=== PATIENT | female | born 1970 | race American Indian/Alaskan Native ===

== ENCOUNTER 2020-04-17 09:34 | Emergency (ER) | payer SELFPAY ==
[2020-04-17 10:44] LABS: Bilirubin,Urine NEG (Negative); Blood,Urine NEG (Negative); Color,Urine Amber (Yellow); Mucus,Urine 2+ /HPF
[2020-04-17] MEDS ORDERED: ALUM-MAG HYDROXIDE-SIMETHICONE 200-200-20MG/5ML ORAL LIQD 30 ML PO ONE (11:07)
[2020-04-17] MEDS ORDERED: FAMOTIDINE 20 MG TAB PO ONE (11:07)
[2020-04-17] MEDS ORDERED: ONDANSETRON 4 MG ODT TAB PO ONE (11:07)
[2020-04-17] MEDS ORDERED: HYOSCYAMINE SUBL 0.125 MG TAB SL ONE (11:07)
--- NOTE | 2020-04-17 11:35 | Emergency Department Report ---
ED General Adult HPI - General Chief complaint: Urogenital-Female Stated complaint: POSS UTI/NAUSEA Time Seen by Provider: 04/17/20 10:10 Source: patient Mode of arrival: Ambulatory Limitations: No Limitations - History of Present Illness Initial comments: Patient is a 49-year-old female presents emergency room with complaints of possible UTI. She states that she has a strong urine smell and believes that she has a UTI. She denies any dysuria, urinary frequency, suprapubic pain, hematuria, vaginal discharge, vaginal itching or burning, irritation, back pain. She states that she has been having an exacerbation of her GERD. She states that she has some mild epigastric discomfort which she describes as a burning sensation, increased gas, increased belching. She states that she has not had any issues with her GERD in a while and has not taken anything for it in a long time. She states that she has some associated nausea and had one episode of vomiting. She denies any diarrhea or fever. She has a past medical history of a salivary gland removal. She has an allergy to codeine, penicillin, aspirin, hydromorphone, morphine. Patient states that she does take a lot of Aleve. She states that she takes it approximately twice a day for arthritis/joint pain. - Related Data Previous Rx's Medication Instructions Recorded Last Taken Type Omeprazole 20 mg PO DAILY #30 capsule. 04/17/20 Unknown Rx Sucralfate [Carafate] 1 gm PO ACHS 7 Days #21 tablet 04/17/20 Unknown Rx Allergies Allergy/AdvReac Type Severity Reaction Status Date / Time codeine Allergy Hives Verified 04/17/20 09:44 Penicillins Allergy Hives Verified 04/17/20 09:44 aspirin AdvReac Unknown Verified 04/17/20 09:44 hydromorphone AdvReac Unknown Verified 04/17/20 09:44 morphine AdvReac Unknown Verified 04/17/20 09:44 ED Review of Systems ROS: Stated complaint: POSS UTI/NAUSEA Other details as noted in HPI Comment: All other systems reviewed and negative ED Past Medical Hx - Past Medical History Additional medical history: REFLUX - Social History Smoking Status: Never Smoker Substance Use Type: None - Medications Home Medications: Home Medications Medication Instructions Recorded Confirmed Last Taken Type Omeprazole 20 mg PO DAILY #30 capsule. 04/17/20 Unknown Rx Sucralfate [Carafate] 1 gm PO ACHS 7 Days #21 tablet 04/17/20 Unknown Rx ED Physical Exam - General Limitations: No Limitations General appearance: alert, in no apparent distress - Head Head exam: Present: atraumatic, normocephalic - Eye Eye exam: Present: normal appearance - ENT ENT exam: Present: mucous membranes moist - Respiratory Respiratory exam: Present: normal lung sounds bilaterally. Absent: respiratory distress, wheezes, rales, rhonchi, stridor, chest wall tenderness, accessory muscle use, decreased breath sounds, prolonged expiratory - Cardiovascular Cardiovascular Exam: Present: regular rate, normal rhythm, normal heart sounds. Absent: systolic murmur, diastolic murmur, rubs, gallop - GI/Abdominal GI/Abdominal exam: Present: soft, normal bowel sounds. Absent: distended, tenderness, guarding, rebound, rigid - Neurological Exam Neurological exam: Present: alert, oriented X3 - Psychiatric Psychiatric exam: Present: normal affect, normal mood - Skin Skin exam: Present: warm, dry, intact ED Course Vital Signs 04/17/20 04/17/20 09:40 15:14 Temperature 98.5 F 98.2 F Pulse Rate 87 74 Respiratory 18 18 Rate Blood Pressure 133/93 Blood Pressure 178/72 [Right] O2 Sat by Pulse 94 100 Oximetry ED Medical Decision Making - Lab Data Result diagrams: 04/17/20 11:26 04/17/20 11:26 Lab Results 04/17/20 04/17/20 04/17/20 Range/Units 10:27 11:26 11:26 WBC 4.6 (4.5-11.0) K/mm3 RBC 4.73 (3.65-5.03) M/mm3 Hgb 14.4 H (10.1-14.3) gm/dl Hct 40.9 (30.3-42.9) % MCV 87 (79-97) fl MCH 31 (28-32) pg MCHC 35 H (30-34) % RDW 13.2 (13.2-15.2) % Plt Count 203 (140-440) K/mm3 Lymph % (Auto) 15.0 (13.4-35.0) % Ferry % (Auto) 7.9 H (0.0-7.3) % Eos % (Auto) 0.0 (0.0-4.3) % Baso % (Auto) 0.2 (0.0-1.8) % Lymph # (Auto) 0.7 L (1.2-5.4) K/mm3 Ferry # (Auto) 0.4 (0.0-0.8) K/mm3 Eos # (Auto) 0.0 (0.0-0.4) K/mm3 Baso # (Auto) 0.0 (0.0-0.1) K/mm3 Seg Neutrophils % 76.9 H (40.0-70.0) % Seg Neutrophils # 3.5 (1.8-7.7) K/mm3 Sodium 135 L (137-145) mmol/L Potassium 3.7 (3.6-5.0) mmol/L Chloride 98.0 (98-107) mmol/L Carbon Dioxide 27 (22-30) mmol/L Anion Gap 14 mmol/L BUN 16 (7-17) mg/dL Creatinine 1.5 H (0.6-1.2) mg/dL Estimated GFR 37 ml/min BUN/Creatinine Ratio 11 % Glucose 87 (65-100) mg/dL Calcium 9.3 (8.4-10.2) mg/dL Total Bilirubin 0.50 (0.1-1.2) mg/dL AST 26 (5-40) units/L ALT 19 (7-56) units/L Alkaline Phosphatase 78 (35-129) units/L Total Creatine Kinase (30-135) units/L Total Protein 7.8 (6.3-8.2) g/dL Albumin 3.3 L (3.9-5) g/dL Albumin/Globulin Ratio 0.7 % Lipase 68 H (13-60) units/L Urine Color Kiki (Yellow) Urine Turbidity Clear (Clear) Urine pH 5.0 (5.0-7.0) Ur Specific Moro 1.029 (1.003-1.030) Urine Protein 100 mg/dl (Negative) mg/dL Urine Glucose (UA) Neg (Negative) mg/dL Urine Ketones 20 (Negative) mg/dL Urine Blood Neg (Negative) Urine Nitrite Neg (Negative) Urine Bilirubin Neg (Negative) Urine Urobilinogen 2.0 (<2.0) mg/dL Ur Leukocyte Esterase Neg (Negative) Urine WBC (Auto) 3.0 (0.0-6.0) /HPF Urine RBC (Auto) 4.0 (0.0-6.0) /HPF U Epithel Cells (Auto) 6.0 (0-13.0) /HPF Urine Mucus 2+ /HPF 04/17/20 Range/Units 11:31 WBC (4.5-11.0) K/mm3 RBC (3.65-5.03) M/mm3 Hgb (10.1-14.3) gm/dl Hct (30.3-42.9) % MCV (79-97) fl MCH (28-32) pg MCHC (30-34) % RDW (13.2-15.2) % Plt Count (140-440) K/mm3 Lymph % (Auto) (13.4-35.0) % Ferry % (Auto) (0.0-7.3) % Eos % (Auto) (0.0-4.3) % Baso % (Auto) (0.0-1.8) % Lymph # (Auto) (1.2-5.4) K/mm3 Ferry # (Auto) (0.0-0.8) K/mm3 Eos # (Auto) (0.0-0.4) K/mm3 Baso # (Auto) (0.0-0.1) K/mm3 Seg Neutrophils % (40.0-70.0) % Seg Neutrophils # (1.8-7.7) K/mm3 Sodium (137-145) mmol/L Potassium (3.6-5.0) mmol/L Chloride (98-107) mmol/L Carbon Dioxide (22-30) mmol/L Anion Gap mmol/L BUN (7-17) mg/dL Creatinine (0.6-1.2) mg/dL Estimated GFR ml/min BUN/Creatinine Ratio % Glucose (65-100) mg/dL Calcium (8.4-10.2) mg/dL Total Bilirubin (0.1-1.2) mg/dL AST (5-40) units/L ALT (7-56) units/L Alkaline Phosphatase (35-129) units/L Total Creatine Kinase 98 (30-135) units/L Total Protein (6.3-8.2) g/dL Albumin (3.9-5) g/dL Albumin/Globulin Ratio % Lipase (13-60) units/L Urine Color (Yellow) Urine Turbidity (Clear) Urine pH (5.0-7.0) Ur Specific Moro (1.003-1.030) Urine Protein (Negative) mg/dL Urine Glucose (UA) (Negative) mg/dL Urine Ketones (Negative) mg/dL Urine Blood (Negative) Urine Nitrite (Negative) Urine Bilirubin (Negative) Urine Urobilinogen (<2.0) mg/dL Ur Leukocyte Esterase (Negative) Urine WBC (Auto) (0.0-6.0) /HPF Urine RBC (Auto) (0.0-6.0) /HPF U Epithel Cells (Auto) (0-13.0) /HPF Urine Mucus /HPF Vital Signs 04/17/20 04/17/20 09:40 15:14 Temperature 98.5 F 98.2 F Pulse Rate 87 74 Respiratory 18 18 Rate Blood Pressure 133/93 Blood Pressure 178/72 [Right] O2 Sat by Pulse 94 100 Oximetry - Medical Decision Making Patient is a 49-year-old female presents emergency room with complaints of possible UTI. She states that she has a strong urine smell and believes that she has a UTI. She denies any dysuria, urinary frequency, suprapubic pain, hematuria, vaginal discharge, vaginal itching or burning, irritation, back pain. She states that she has been having an exacerbation of her GERD. She states that she has some mild epigastric discomfort which she describes as a burning sensation, increased gas, increased belching. She states that she has not had any issues with her GERD in a while and has not taken anything for it in a long time. She states that she has some associated nausea and had one episode of vomiting. She denies any diarrhea or fever. She has a past medical history of a salivary gland removal. She has an allergy to codeine, penicillin, aspirin, hydromorphone, morphine. Patient states that she does take a lot of Aleve. She states that she takes it approximately twice a day for arthritis/joint pain. VSS. No abnormality on physical examination as documented in chart. UA with mild dehydration, no signs of UTI. Lab significant for elevated creatinine at 1.5, GFR 37, BUN is normal. Patient given medications while in the emergency department and symptoms improved. Patient given 2 L of IV fluids. Discussed case with Dr. Aquiles Forrest, ER attending who advised to give patient outpatient nephrology referral. Discussed all results with patient and answered questions. Do not suspect acute emergent intra-abdominal pathology, she has no abdominal tenderness on exam, she is tolerating p.o. intake, she denies any significant vomiting, diarrhea, she is having normal bowel movements. It is likely related to GERD versus PUD. Advised patient will refer to GI. Patient given prescription for omeprazole and Carafate. Advised patient Please take medication as prescribed. Increase your water intake. Please follow the diet for acid reflux. Please follow-up with a GI doctor. Please follow-up with a financial dealers regarding the decline in your kidney function. Please avoid NSAIDs such as Aleve, ibuprofen. Please avoid alcohol use. Return to emergency room for any new or worsening symptoms. Critical care attestation.: If time is entered above; I have spent that time in minutes in the direct care of this critically ill patient, excluding procedure time. ED Disposition Clinical Impression: Renal insufficiency GERD (gastroesophageal reflux disease) Qualifiers: Esophagitis presence: without esophagitis Qualified Code(s): K21.9 - Gastro- esophageal reflux disease without esophagitis Disposition: - TO HOME OR SELFCARE Is pt being admited?: No Does the pt Need Aspirin: No Condition: Stable Instructions: Heartburn, [id number], Food Choices for Gastroesophageal Reflux Disease, Adult Additional Instructions: Please take medication as prescribed. Increase your water intake. Please follow the diet for acid reflux. Please follow-up with a GI doctor. Please follow-up with a financial dealers regarding the decline in your kidney function. Please avoid NSAIDs such as Aleve, ibuprofen. Please avoid alcohol use. Return to emergency room for any new or worsening symptoms. Prescriptions: Sucralfate [Carafate] 1 gm PO ACHS 7 Days #21 tablet Omeprazole 20 mg PO DAILY #30 capsule. Referrals: ROMEO HOFFMAN MD [Primary Care Provider] - 2-3 Days CHRISTY GRADY MD [Staff Physician] - 2-3 Days [facility] [Provider Group] - 2-3 Days Time of Disposition: 14:54 Print Language: MICRONESIAN
[2020-04-17 11:57] LABS: Basophils % (Auto) 0.2 % (0.0-1.8); Hematocrit 40.9 % (30.3-42.9); Hemoglobin 14.4 gm/dl (10.1-14.3); Lymphocytes # (Auto) 0.7 K/mm3 (1.2-5.4); Mean Corpuscular HGB Conc 35 % (30-34); Mean Corpuscular Volume 87 fl (79-97); Monocytes # (Auto) 0.4 K/mm3 (0.0-0.8); Monocytes % (Auto) 7.9 % (0.0-7.3); Platelet Count 203 K/mm3 (140-440); Red Blood Count 4.73 M/mm3 (3.65-5.03); Red Cell Distribution Width 13.2 % (13.2-15.2)
[2020-04-17 12:21] LABS: Albumin 3.3 g/dL (3.9-5); Calcium 9.3 mg/dL (8.4-10.2)
[2020-04-17] MEDS ORDERED: SODIUM CHLORIDE 0.9% 1000 ML 1,000 ML IV ONE ×2 (12:21→12:22)
[2020-04-17] MEDS ORDERED: ACETAMINOPHEN 325 MG TAB PO ONE (14:29)
[2020-04-17] MEDS ORDERED: ONDANSETRON 4 MG/2 ML INJ IV ONE (14:29)
[2020-04-17 15:15] VITALS: BP 178/72
== END 2020-04-17 15:58 | disposition home or self-care (01) ==
LOC: ED 09:34
DX: N28.9 Disorder of kidney and ureter, unspecified (principal); K21.9 Gastro-esophageal reflux disease without esophagitis; Z79.899 Other long term (current) drug therapy; Z88.0 Allergy status to penicillin; Z88.6 Allergy status to analgesic agent; Z88.8 Allergy status to other drugs, medicaments and biological substances
CPT/HCPCS: 36415; 80053; 81001; 82550; 83690; 85025; 96361; 96374; 99283; J2405; J7030; Q0162

== ENCOUNTER 2021-03-21 10:19 | Emergency (ER) | payer SELFPAY ==
[2021-03-21] MEDS ORDERED: DEXAMETHASONE 4 MG TAB PO ONE (10:42)
--- NOTE | 2021-03-21 10:55 | Emergency Department Report ---
ED General Adult HPI - General Chief complaint: Upper Respiratory Infection Stated complaint: INSECT BITE/SWOLLEN Time Seen by Provider: 03/21/21 10:33 Source: patient Mode of arrival: Ambulatory Limitations: No Limitations - History of Present Illness Initial comments: 50-year-old -[place] female patient without past medical history presents with complaints of allergic reaction to insect bite x1 week. Patient states while at a birthday [employer] 7 days ago she felt a pinch to her arm while outdoors. She reports she developed itching and redness and swelling to her upper arm after. The itching, swelling, and redness spread down her arm into her hand. She denies any fever/chills/sweats, difficulty moving her arm/wrist/hand/fingers, or immunocompromising disease history. Patient states there is a burning pain that occurs mainly after scratching and that the arm and hand are very itchy. Benadryl helps some per patient. Patient reports she has had a similar reaction a few years ago on the left side of her arm that spread down into her hand and in the same manner that was due to an insect bite. - Related Data Previous Rx's Medication Instructions Recorded Last Taken Type Omeprazole 20 mg PO DAILY #30 capsule. 04/17/20 Unknown Rx Sucralfate [Carafate] 1 gm PO ACHS 7 Days #21 tablet 04/17/20 Unknown Rx Clindamycin [Clindamycin CAP] 300 mg PO Q6H 10 Days #40 cap 03/21/21 Unknown Rx Loratadine 10 mg PO QDAY #10 tablet 03/21/21 Unknown Rx Prednisone [predniSONE 10 mg 10 mg PO .TAPER #1 tab.ds.pk 03/21/21 Unknown Rx (6-Day Pack, 21 Tabs)] Triamcinolone Acetonide 1 gm TP TID PRN #2 oint...g. 03/21/21 Unknown Rx Allergies Allergy/AdvReac Type Severity Reaction Status Date / Time codeine Allergy Hives Verified 04/17/20 09:44 latex Allergy Hives Verified 03/21/21 10:20 Penicillins Allergy Hives Verified 04/17/20 09:44 aspirin AdvReac Unknown Verified 04/17/20 09:44 hydromorphone AdvReac Unknown Verified 04/17/20 09:44 morphine AdvReac Unknown Verified 04/17/20 09:44 ED Review of Systems ROS: Stated complaint: INSECT BITE/SWOLLEN Other details as noted in HPI Constitutional: denies: chills, diaphoresis, fever, malaise, weakness Respiratory: denies: cough, shortness of breath Musculoskeletal: denies: joint swelling, arthralgia Skin: rash Neurological: denies: numbness, paresthesias ED Past Medical Hx - Past Medical History Previous Medical History?: No Additional medical history: REFLUX - Surgical History Hx Cholecystectomy: Yes Additional Surgical History: C SECTIONS/ - Social History Smoking Status: Never Smoker Substance Use Type: None - Medications Home Medications: Home Medications Medication Instructions Recorded Confirmed Last Taken Type Omeprazole 20 mg PO DAILY #30 capsule.dr 04/17/20 Unknown Rx Sucralfate [Carafate] 1 gm PO ACHS 7 Days #21 tablet 04/17/20 Unknown Rx Clindamycin [Clindamycin CAP] 300 mg PO Q6H 10 Days #40 cap 03/21/21 Unknown Rx Loratadine 10 mg PO QDAY #10 tablet 03/21/21 Unknown Rx Prednisone [predniSONE 10 mg 10 mg PO .TAPER #1 tab.ds.pk 03/21/21 Unknown Rx (6-Day Pack, 21 Tabs)] Triamcinolone Acetonide 1 gm TP TID PRN #2 oint...g. 03/21/21 Unknown Rx ED Physical Exam - General Limitations: No Limitations General appearance: alert, in no apparent distress, obese - Head Head exam: Present: atraumatic, normocephalic - Eye Eye exam: Present: normal appearance. Absent: scleral icterus - Respiratory Respiratory exam: Present: normal lung sounds bilaterally. Absent: respiratory distress - Cardiovascular Cardiovascular Exam: Present: regular rate - Neurological Exam Neurological exam: Present: alert, oriented X3, normal gait - Psychiatric Psychiatric exam: Present: normal affect, normal mood - Skin Skin exam: Present: warm, dry, intact, other (Mildly erythemic coloration noted to right dorsal aspect of hand and wrist with mild swelling; redness streaks up the arm with mild swelling; rash is nontender; no bony tenderness; normal radial and ulnar pulses noted; normal range of motion of the hands and fingers and wrist noted) ED Course Vital Signs 03/21/21 10:23 Temperature 98.1 F Pulse Rate 73 Respiratory 20 Rate Blood Pressure 194/79 O2 Sat by Pulse 99 Oximetry ED Medical Decision Making - Radiology Data Radiology results: report reviewed DUPLEX DOPPLER UPPER EXTREMITY VENOUS, RIGHT INDICATION / CLINICAL INFORMATION: swelling, redness. TECHNIQUE: Duplex doppler imaging was performed through the veins of the right upper extremity using venous compression and other maneuvers. COMPARISON: None available. FINDINGS: RIGHT INTERNAL JUGULAR VEIN: Negative. RIGHT SUBCLAVIAN VEIN: Negative. RIGHT AXILLARY VEIN: Negative. RIGHT BRACHIAL VEIN: Negative. RIGHT FOREARM VEINS: Negative. RIGHT BASILIC VEIN (SUPERFICIAL): Negative. ADDITIONAL FINDINGS: None. IMPRESSION: 1. No sonographic evidence for DVT. - Medical Decision Making 50-year-old -[place] female patient without past medical history presents with complaints of allergic reaction to insect bite x1 week. Patient states while at a birthday republic[employer] 7 days ago she felt a pinch to her arm while outdoors. She reports she developed itching and redness and swelling to her upper arm after. The itching, swelling, and redness spread down her arm into her hand. She denies any fever/chills/sweats, difficulty moving her arm/wrist/hand/fingers, or immunocompromising disease history. Patient states there is a burning pain that occurs mainly after scratching and that the arm and hand are very itchy. Benadryl helps some per patient. Patient reports she has had a similar reaction a few years ago on the left side of her arm that spread down into her hand and in the same manner that was due to an insect bite. Ultrasound negative for DVT. No pallor or pulselessness noted on exam to suspect arterial clot. Given exam findings, will cover for both allergic reaction in infection. Patient to follow-up with primary care in 2 to 3 days for both recheck of rash and blood pressure recheck. She denies any neuro symptoms. Patient is well-appearing and stable for discharge home. Discussed in great detail signs and symptoms that should prompt immediate return to the ED, patient verbalized understanding. Critical care attestation.: If time is entered above; I have spent that time in minutes in the direct care of this critically ill patient, excluding procedure time. ED Disposition Clinical Impression: Rash Disposition: 01 HOME / SELF CARE / HOMELESS Is pt being admited?: No Condition: Stable Instructions: Rash, Adult, Insect Bite, Adult, Cellulitis, Adult Prescriptions: Clindamycin [Clindamycin CAP] 300 mg PO Q6H 10 Days #40 cap Loratadine 10 mg PO QDAY #10 tablet Prednisone [predniSONE 10 mg (6-Day Pack, 21 Tabs)] 10 mg PO .TAPER #1 tab.ds.pk Triamcinolone Acetonide 1 gm TP TID PRN #2 oint...g. PRN Reason: Itching Referrals: [facility] [Provider Group] - 2-3 Days
[2021-03-21] MEDS ORDERED: dexAMETHasone 4 MG/ML VIAL IM STA (11:00)
--- NOTE | 2021-03-21 12:03 | Vascular Lab Report ---
DUPLEX DOPPLER UPPER EXTREMITY VENOUS, RIGHT INDICATION / CLINICAL INFORMATION: swelling, redness. TECHNIQUE: Duplex doppler imaging was performed through the veins of the right upper extremity using venous compression and other maneuvers. COMPARISON: None available. FINDINGS: RIGHT INTERNAL JUGULAR VEIN: Negative. RIGHT SUBCLAVIAN VEIN: Negative. RIGHT AXILLARY VEIN: Negative. RIGHT BRACHIAL VEIN: Negative. RIGHT FOREARM VEINS: Negative. RIGHT BASILIC VEIN (SUPERFICIAL): Negative. ADDITIONAL FINDINGS: None. IMPRESSION: 1. No sonographic evidence for DVT. Signer Name: Lloyd Ovalle MD Signed: 03/21/2021 11:58 AM Workstation Name: [id number]
[2021-03-21 12:58] VITALS: BP 181/94
== END 2021-03-21 13:45 | disposition home or self-care (01) ==
LOC: ED 10:19
DX: R21 Rash and other nonspecific skin eruption (principal); Z98.890 Other specified postprocedural states; Z90.49 Acquired absence of other specified parts of digestive tract; Z79.899 Other long term (current) drug therapy; Z88.0 Allergy status to penicillin; Z88.5 Allergy status to narcotic agent; Z91.040 Latex allergy status; Z88.6 Allergy status to analgesic agent; Z88.8 Allergy status to other drugs, medicaments and biological substances
CPT/HCPCS: 93971; 99283; J8540